=== PATIENT | male | born 1935 | race Caucasian/White ===

== ENCOUNTER 2020-10-09 06:37 | Day surgery (SDC) | payer MEDICARE, OTHER ==
[~2020-10-09 06:37] MED LIST: EPINEPHrine 0.3 MG in Ophthalmic Irrigation Solution 500 ML IRR SCH; Fentanyl 100 MCG/2 ML VIAL ONE; Midazolam HCl 2 mg/2 ml Vial ONE
[2020-10-09] MEDS ORDERED: Phenylephrine 2.5% Ophth Soln 5 ML BOT ONE ×2 (07:01→07:03)
[2020-10-09] MEDS ORDERED: Cyclopentolate W/ Phenylephrin 40 DROP/2 ML BOT ONE (07:02)
--- NOTE | 2020-10-09 09:17 | OP ---
DATE OF PROCEDURE: 10/09/2020 PRINCIPAL PREOPERATIVE DIAGNOSIS: Epiretinal membrane, right eye. POSTOPERATIVE DIAGNOSIS: Epiretinal membrane, right eye. PROCEDURES PERFORMED: 1. 25-gauge pars plana vitrectomy, right eye. 2. Epiretinal membrane/internal limiting membrane removal, right eye. 3. Endolaser, right eye. 4. Air fill, right eye. ESTIMATED BLOOD LOSS: None. SPECIMENS REMOVED: None. COMPLICATIONS: None. ANESTHESIA: MAC with sub-Tenon's block. DESCRIPTION OF PROCEDURE: The patient was identified in the preoperative holding area, where the correct eye being the right eye was marked for surgery. The patient was taken to the operating room, where MAC anesthesia was induced. The right eye was prepped and draped in the usual sterile ophthalmic fashion for surgery. A wire-clip lid speculum was placed. An inferonasal conjunctival peritomy was fashioned with Mónica scissors for administration of sub-Tenon's block. The block consisted of 1:1 ratio of 4% lidocaine and 0.75% Marcaine. A total of 5 mL was administered. A standard 25-gauge pars plana vitrectomy platform was fashioned with trocars placed approximately 3.5 mm from the limbus. The infusion was noted to be within the vitreous cavity prior to being turned on to an infusion pressure of 30 mmHg. The light pipe and microvitrector were introduced in the eye under visualization of the BIOM viewing system. A careful core and peripheral shave vitrectomy were performed. Following vitrectomy, ICG dye was used to stain the internal limiting membrane. Using the Emerson ILM forceps, epiretinal membrane/internal limiting membrane complex removal was performed in a circumferential fashion about the fovea. The peel extended approximately 2 disk diameters in radius circumferentially. During the peeling, a tiny defect was noted superotemporal arcade with a minimal amount of subretinal fluid. Following peeling, the microvitrector was reintroduced in the eye to remove any residual vitreous debris. An air-fluid exchange was performed, which allowed for complete flattening of the retina. Endolaser was used to provide a small surrounding area around the defect along the superotemporal arcade. The cannulas were sequentially removed and all sclerotomies were noted to be gas tight. Subconjunctival Ancef and Kenalog were injected. The wire lid speculum was removed followed by application of TobraDex ophthalmic ointment and a light patch and shield. The patient tolerated the procedure well, was taken to the outpatient recovery area in good condition. Job ID: [id number]
[2020-10-09] MEDS ORDERED: CEFAZOLIN 1 GM VIAL ONE (11:28)
[2020-10-09] MEDS ORDERED: Lidocaine 1% PF 5 ML VIAL ONE (11:28)
[2020-10-09] MEDS ORDERED: Triamcinolone 40 MG/ML VIAL ONE (11:28)
[2020-10-09] MEDS ORDERED: Lidocaine 4% PF 5 ML AMP ONE (11:28)
[2020-10-09] MEDS ORDERED: Maxitrol 0.1% Opth Oint 3.5 GM TUBE ONE (11:28)
[2020-10-09] MEDS ORDERED: Indocyanine Green 25 MG/10 ML VIAL ONE (11:28)
[2020-10-09] MEDS ORDERED: Bupivacaine PF 0.75% SDV 10 ML ONE (11:28)
[2020-10-09] MEDS ORDERED: PROPOFOL 200 MG/20 ML VIAL ONE (11:28)
== END 2020-10-09 09:40 | disposition home or self-care (01) ==
LOC: SDC 06:37
PROVIDERS: ATTEND Ophthalmology Retina Specialist
PROC: 08T43ZZ Resection of Right Vitreous, Percutaneous Approach (ICD-10-PCS; principal; 2020-10-09)
PROC: 08NE3ZZ Release Right Retina, Percutaneous Approach (ICD-10-PCS; 2020-10-09)
PROC: 08QE3ZZ Repair Right Retina, Percutaneous Approach (ICD-10-PCS; 2020-10-09)
DX: H35.371 Puckering of macula, right eye (principal); Z79.01 Long term (current) use of anticoagulants; Z79.899 Other long term (current) drug therapy
CPT/HCPCS: J0171; J0690; J2250; J2704; J3010; J3301; J3490